=== PATIENT | male | born 1990 | race Caucasian/White ===

== ENCOUNTER 2017-01-18 20:40 | Emergency (ER) | payer MEDICAID ==
[~2017-01-18] VITALS: Ht 182.9 cm; Wt 76.2 kg
[2017-01-18 21:19] LABS: Basophils # (auto) 0.1 uL; Basophils % (auto) 0.7 % (0.0-2.0); CONDITION Y; Eosinophils # (auto) 0 uL; Hematocrit 54.9 % (41.0-53.0); Hemoglobin 19.3 g/dL (13.5-17.5); Lymphocytes # (auto) 1.2 uL; Lymphocytes % (auto) 11.5 % (10.0-50.0); Mean Corpuscular Hgb Conc. 35.1 g/dL (32.0-36.0); Mean Corpuscular Volume 96.9 fL (80.0-100.0); Mean Platelet Volume 7.8 fL (7.4-10.4); Monocytes # (auto) 1.3 uL; Monocytes % (auto) 11.8 % (0.0-12.0); Neutrophils # (auto) 8.1 uL; Platelet Count (auto) 341 10^3/uL (140-450); Red Cell Distribution Width 12.6 % (11.6-16.0); White Blood Cell 10.7 10^3/uL (4.4-10.8)
[2017-01-18 21:35] LABS: Albumin 4.2 g/dL (3.4-5.0); BUN/Creatinine Ratio 5.7; Calcium 9.4 mg/dL (8.5-10.1)
[2017-01-18 21:38] LABS: Total Protein 8.5 g/dL (6.4-8.2)
[2017-01-18] MEDS ORDERED: SODIUM CHLORIDE 0.9% 1,000 ML IV ONE ×2 (23:00→23:30)
[2017-01-18] MEDS ORDERED: ONDANSETRON HCL 4 MG/2 ML VIAL IV ONE (23:00)
[2017-01-18] MEDS ORDERED: POTASSIUM CHL 20 Meq TABLET PO ONE (23:30)
[2017-01-19 01:50] VITALS: BP 145/101
== END 2017-01-19 01:51 | disposition home or self-care (01) ==
LOC: ER 20:47
DX: F10.10 Alcohol abuse, uncomplicated (principal); E86.0 Dehydration; E80.7 Disorder of bilirubin metabolism, unspecified; R74.0 Nonspecific elevation of levels of transaminase and lactic acid dehydrogenase [LDH]; M79.642 Pain in left hand; M79.641 Pain in right hand; R68.84 Jaw pain
CPT/HCPCS: 36415; 80053; 82150; 83690; 85025; 96361; 96374; 99284; J2405; J7030